=== PATIENT | female | born 1940 | race Caucasian/White ===

== ENCOUNTER 2017-08-22 13:29 | Emergency (ER) | payer MEDICARE, OTHER ==
[~2017-08-22] VITALS: Ht 157.5 cm; Wt 60.0 kg
[2017-08-22 14:29] LABS: AUTOMATED NEUTROPHIL # 5.2 TH/MM3 (1.8-7.7); BASOPHIL # 0.1 TH/MM3 (0-0.2); BASOPHIL % 0.9 % (0.0-2.0); EOSINOPHIL # 0.1 TH/MM3 (0-0.4); EOSINOPHIL % 1.3 % (0.0-4.0); HEMATOCRIT 39.8 % (35.0-46.0); HEMOGLOBIN 14.1 GM/DL (11.6-15.3); LYMPHOCYTE # 1.8 TH/MM3 (1.0-4.8); MEAN CELL VOLUME 88.5 FL (80.0-100.0); MEAN CORPUSCULAR HEMOGLOBIN 31.5 PG (27.0-34.0); MEAN CORPUSCULAR HGB CONC 35.5 % (32.0-36.0); MONO % 8.4 % (0.0-8.0); MONOCYTE # 0.7 TH/MM3 (0-0.9); NEUT % 66.4 % (16.0-70.0); PLATELET COUNT 278 TH/MM3 (150-450); RED BLOOD COUNT 4.49 MIL/MM3 (4.00-5.30); RED CELL DISTRIBUTION WIDTH 13.5 % (11.6-17.2); WHITE BLOOD COUNT 7.8 TH/MM3 (4.0-11.0)
--- NOTE | 2017-08-22 14:30 | RADRPT ---
EXAM DATE/TIME: 08/22/2017 14:16 [place] COMPARISON: No previous studies available for comparison. INDICATIONS : Bilateral lower region pain, calculi. ORAL CONTRAST: No oral contrast ingested. RADIATION DOSE: 9.50 CTDIvol (mGy) MEDICAL HISTORY : None SURGICAL HISTORY : None. ENCOUNTER: Initial ACUITY: 4 - 6 days PAIN SCALE: 2/10 LOCATION: Bilateral lower quadrant TECHNIQUE: Volumetric scanning of the abdomen and pelvis was performed. Using automated exposure control and ad justment of the mA and/or kV according to patient size, radiation dose was kept as low as reasonably achievable to obtain optimal diagnostic quality images. DICOM format image data is available electro nically for review and comparison. 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 Surgical clips gallbladder fossa. Right kidney: There is dilatation right kidney with the 5 mm stone in the middle third of the right ureter with mod erate hydronephrosis and There cases and the left kidney There is no ascites or adenopathy Multiple phleboliths in the pelvis Diverticuli sigmoid colon Review of bone windows reveals only degenerative changes CONCLUSION: 1. 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 Kong Lucero MD FACR on August 22, 2017 at 14:25 Board Certified Radiologist. This report was verified electronically.
[2017-08-22 14:41] LABS: ALBUMIN 3.6 GM/DL (3.4-5.0); AST (GOT) 23 U/L (15-37); BICARBONATE 27.7 MEQ/L (21.0-32.0); BLOOD UREA NITROGEN 13 MG/DL (7-18); CALCIUM 8.9 MG/DL (8.5-10.1); CHLORIDE 103 MEQ/L (98-107); CREATININE 1.16 MG/DL (0.50-1.00); GLOMERULAR FILTRATION RATE 45 ML/MIN (>89); GLUCOSE,RANDOM 93 MG/DL (74-106); SODIUM (NA) 138 MEQ/L (136-145)
[2017-08-22 14:46] LABS: ALKALINE PHOSPHATASE 95 U/L (45-117); ALT (GPT) 14 U/L (10-53); TOTAL BILIRUBIN ADULT 0.5 MG/DL (0.2-1.0); TOTAL PROTEIN 7.6 GM/DL (6.4-8.2)
[2017-08-22 15:54] VITALS: BP 140/81; PULSE 71; RESP 17; TEMP 97.7; O2SAT 97
[2017-08-22] MEDS ORDERED: SODIUM CHLOR 0.9% 1000 ML INJ 1,000 ML IV SCH (16:00)
--- NOTE | 2017-08-22 16:24 | PD ---
Physical Exam Narrative I, Dr. Mayorga, have reviewed the advance practice practitioner's documentation and am in agreement, met with the patient face to face, made the diagnosis, and the medical decision making was done by me. *My assessment and Findings: obstructive uropathy vs. Infected stone 76yo F was sent her by primary care physician to the ED for evaluation. Pt went to [facility] Friday and had CT scan that showed obstructive uropathy and followed up with primary care today. Pt said her pain is controlled and nausea is also controlled. Tolerating PO. Labs reviewed, no leukocytosis. H/H normal. CMP unremarkable. Creatinine 1.16. CTa/p- showed 5mm obstructing stone middle right ureter. UA showed WBC 1. Culture not indicated. Discussed with Dr. Byrnes from urology and pt can follow up as outpatient. She is well appearing and pain is control. Tolerating PO. Return precautions given. Data Data Last Documented VS Vital Signs Date Time Temp Pulse Resp B/P (MAP) Pulse Ox O2 Delivery O2 Flow Rate FiO2 08/22/17 15:54 97.7 71 17 140/81 (100) 97 Room Air Orders Orders Complete Blood Count With Diff (08/22/17 13:50) Comprehensive Metabolic Panel (08/22/17 13:50) Ct Abd/Pel W/O Iv Contrast (08/22/17 13:50) Urinalysis - C+S If Indicated (08/22/17 13:50) Sodium Chlor 0.9% 1000 Ml Inj (Ns 1000 M (08/22/17 16:00) Ed Discharge Order (08/22/17 17:33) Labs Laboratory Tests Test 08/22/17 14:05 08/22/17 16:44 White Blood Count 7.8 TH/MM3 Red Blood Count 4.49 MIL/MM3 Hemoglobin 14.1 GM/DL Hematocrit 39.8 % Mean Corpuscular Volume 88.5 FL Mean Corpuscular Hemoglobin 31.5 PG Mean Corpuscular Hemoglobin Concent 35.5 % Red Cell Distribution Width 13.5 % Platelet Count 278 TH/MM3 Mean Platelet Volume 9.0 FL Neutrophils (%) (Auto) 66.4 % Lymphocytes (%) (Auto) 23.0 % Monocytes (%) (Auto) 8.4 % Eosinophils (%) (Auto) 1.3 % Basophils (%) (Auto) 0.9 % Neutrophils # (Auto) 5.2 TH/MM3 Lymphocytes # (Auto) 1.8 TH/MM3 Monocytes # (Auto) 0.7 TH/MM3 Eosinophils # (Auto) 0.1 TH/MM3 Basophils # (Auto) 0.1 TH/MM3 CBC Comment DIFF FINAL Differential Comment Blood Urea Nitrogen 13 MG/DL Creatinine 1.16 MG/DL Random Glucose 93 MG/DL Total Protein 7.6 GM/DL Albumin 3.6 GM/DL Calcium Level 8.9 MG/DL Alkaline Phosphatase 95 U/L Aspartate Amino Transf (AST/SGOT) 23 U/L Alanine Aminotransferase (ALT/SGPT) 14 U/L Total Bilirubin 0.5 MG/DL Sodium Level 138 MEQ/L Potassium Level 3.8 MEQ/L Chloride Level 103 MEQ/L Carbon Dioxide Level 27.7 MEQ/L Anion Gap 7 MEQ/L Estimat Glomerular Filtration Rate 45 ML/MIN Urine Color LIGHT-YELLOW Urine Turbidity CLEAR Urine pH 5.5 Urine Specific [place] 1.003 Urine Protein NEG mg/dL Urine Glucose (UA) NEG mg/dL Urine Ketones TRACE mg/dL Urine Occult Blood SMALL Urine Nitrite NEG Urine Bilirubin NEG Urine Urobilinogen LESS THAN 2.0 MG/DL Urine Leukocyte Esterase SMALL Urine RBC 1 /hpf Urine WBC 1 /hpf Microscopic Urinalysis Comment CULT NOT INDICATED MDM Supervised Visit with CELY: Yes Diagnosis Primary Impression: Kidney stone on right side Scripts Tramadol (Tramadol) 50 Mg Tab 50 MG PO Q6H Y for PAIN, #10 TAB 0 Refills Prov: Sarah Mayorga DO 08/22/17 Sarah Mayorga DO Aug 22, 2017 16:24
[2017-08-22 17:10] LABS: BILIRUBIN, URINE NEG (NEG); BLOOD, URINE SMALL (NEG); GLUCOSE,URINE NEG (NEG); KETONE, URINE TRACE mg/dL (NEG); NITRITE,URINE NEG (NEG); PH, URINE 5.5 (5.0-8.5); URINE COLOR LIGHT-YELLOW (YELLW/STRAW); URINE LEUKOCYTE ESTERASE SMALL (NEG)
[2017-08-22] MEDS ORDERED: TRAM50TA PO (17:35)
--- NOTE | 2017-08-22 17:45 | PD ---
HPI Chief Complaint: Complaint Time Seen by Provider: 15:45 Travel History International Travel<30 days: No Contact w/Intl Traveler<30days: No Traveled to known affect area: No History of Present Illness HPI 76-year-old female that presents to the ED for evaluation of possible kidney stone. Per patient she was seen at [facility] on Friday and she developed severe pain in her right flank. Patient had labs and imaging which showed what appears to be a 5 mm stone with severe hydronephrosis. Per family and the patient she was released with a perception for tramadol and Zofran and she's been using it except that she is only taking the once. Per patient today she went to follow up with her doctor today and her doctor "freaked out" over the results of the CAT scan and sent the patient in to the ER. Patient herself voices that the pain in her flank has improved and is not been as bad as he was on Friday. Per patient the pain currently is 2 out of 10 if any. She has only taken the tramadol once and has been doing well with it. She denies any nausea or vomiting. She denies any urinary or bowel movement issues. She denies any surgeries or history of kidney stones. No fevers chills or sweats. Patient and family are unsure as to what to do as her doctor is very concerned about the findings on the CT scan. PFSH Past Medical History Medical History: Denies Significant Hx Diminished Hearing: No Tetanus Vaccination: Unknown Influenza Vaccination: No ?: Not Past Surgical History Cholecystectomy: Yes Hysterectomy: Yes Other Surgery: Yes (RIGHT WRIST ) Social History Alcohol Use: No Tobacco Use: No Substance Use: No Allergies-Medications (Allergen,Severity, Reaction): Coded Allergies: Penicillins (Verified Allergy, Unknown, 08/22/17) Uncoded Allergies: flouride (Allergy, Unknown, 08/22/17) Reported Meds & Prescriptions Reported Meds & Active Scripts Active Tramadol (Tramadol HCl) 50 Mg Tab 50 Mg PO Q6H PRN Review of Systems Except as stated in HPI: all other systems reviewed are Neg Physical Exam Narrative GENERAL: SKIN: Warm and dry. HEAD: Atraumatic. Normocephalic. EYES: Pupils equal and round. No scleral icterus. No injection or drainage. ENT: No nasal bleeding or discharge. Mucous membranes pink and moist. Tongue is midline. No uvula deviation. NECK: Trachea midline. No JVD. CARDIOVASCULAR: Regular rate and rhythm. No murmurs, S3, S4. RESPIRATORY: No accessory muscle use. Clear to auscultation. Breath sounds equal bilaterally. GASTROINTESTINAL: Abdomen soft, non-tender, nondistended. Hepatic and splenic margins not palpable. MUSCULOSKELETAL: Extremities without clubbing, cyanosis, or edema. No obvious deformities. No CVA tenderness. NEUROLOGICAL: Awake and alert. No obvious cranial nerve deficits. Motor grossly within normal limits. Five out of 5 muscle strength in the arms and legs. Normal speech. PSYCHIATRIC: Appropriate mood and affect; insight and judgment normal. Data Data Last Documented VS Vital Signs Date Time Temp Pulse Resp B/P (MAP) Pulse Ox O2 Delivery O2 Flow Rate FiO2 08/22/17 15:54 97.7 71 17 140/81 (100) 97 Room Air Orders Orders Complete Blood Count With Diff (08/22/17 13:50) Comprehensive Metabolic Panel (08/22/17 13:50) Ct Abd/Pel W/O Iv Contrast (08/22/17 13:50) Urinalysis - C+S If Indicated (08/22/17 13:50) Sodium Chlor 0.9% 1000 Ml Inj (Ns 1000 M (08/22/17 16:00) Ed Discharge Order (08/22/17 17:33) Labs Laboratory Tests Test 08/22/17 14:05 08/22/17 16:44 White Blood Count 7.8 TH/MM3 Red Blood Count 4.49 MIL/MM3 Hemoglobin 14.1 GM/DL Hematocrit 39.8 % Mean Corpuscular Volume 88.5 FL Mean Corpuscular Hemoglobin 31.5 PG Mean Corpuscular Hemoglobin Concent 35.5 % Red Cell Distribution Width 13.5 % Platelet Count 278 TH/MM3 Mean Platelet Volume 9.0 FL Neutrophils (%) (Auto) 66.4 % Lymphocytes (%) (Auto) 23.0 % Monocytes (%) (Auto) 8.4 % Eosinophils (%) (Auto) 1.3 % Basophils (%) (Auto) 0.9 % Neutrophils # (Auto) 5.2 TH/MM3 Lymphocytes # (Auto) 1.8 TH/MM3 Monocytes # (Auto) 0.7 TH/MM3 Eosinophils # (Auto) 0.1 TH/MM3 Basophils # (Auto) 0.1 TH/MM3 CBC Comment DIFF FINAL Differential Comment Blood Urea Nitrogen 13 MG/DL Creatinine 1.16 MG/DL Random Glucose 93 MG/DL Total Protein 7.6 GM/DL Albumin 3.6 GM/DL Calcium Level 8.9 MG/DL Alkaline Phosphatase 95 U/L Aspartate Amino Transf (AST/SGOT) 23 U/L Alanine Aminotransferase (ALT/SGPT) 14 U/L Total Bilirubin 0.5 MG/DL Sodium Level 138 MEQ/L Potassium Level 3.8 MEQ/L Chloride Level 103 MEQ/L Carbon Dioxide Level 27.7 MEQ/L Anion Gap 7 MEQ/L Estimat Glomerular Filtration Rate 45 ML/MIN Urine Color LIGHT-YELLOW Urine Turbidity CLEAR Urine pH 5.5 Urine Specific [place] 1.003 Urine Protein NEG mg/dL Urine Glucose (UA) NEG mg/dL Urine Ketones TRACE mg/dL Urine Occult Blood SMALL Urine Nitrite NEG Urine Bilirubin NEG Urine Urobilinogen LESS THAN 2.0 MG/DL Urine Leukocyte Esterase SMALL Urine RBC 1 /hpf Urine WBC 1 /hpf Microscopic Urinalysis Comment CULT NOT INDICATED MDM Medical Decision Making Medical Screen Exam Complete: Yes Emergency Medical Condition: Yes Medical Record Reviewed: Yes Interpretation(s) Last Impressions Abdomen/Pelvis CT 08/22/17 1350 Signed Impressions: Service Date/Time: Tuesday, August 22, 2017 14:16 - CONCLUSION: 1. 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 Kong Lucero MD FACR CBC & BMP Diagram 08/22/17 14:05 Total Protein 7.6, Albumin 3.6, Calcium Level 8.9, Alkaline Phosphatase 95, Aspartate Amino Transf (AST/SGOT) 23, Alanine Aminotransferase (ALT/SGPT) 14, Total Bilirubin 0.5 UA WNL Differential Diagnosis Kidney stone versus hydronephrosis versus kidney infection versus UTI Narrative Course 76-year-old female that presents to the ED for evaluation of possible kidney stone. Labs and imaging were ordered. Labs and imaging did show a 5 mm stone with moderate hydronephrosis. No signs of infection and kidney function appears to be normal for her. She was given IV fluids and she has actually not requesting any pain medication here feeling good per patient. I did offer pain medication but she declined. I discussed the case with my attending Dr. Mayorga who agrees that we should speak with urology. I spoke with Dr. Byrnes over the phone who is in agreement that as long as patient is feeling comfortable and her pain is under control she can follow-up outpatient and the kidney stone should pass on its own. He does not recommend Flomax at this time with continuation of pain medications as well as anti-inflammatories as well as good hydration. I had a long discussion with the family and patient and they're in agreement and happy with care. They understands reasons to come back. I did give information to the family and patient of Dr. Byrnes to follow up in the next week or 2 if the stone does not pass. All questions were answered to the best of my ability. Family happy with care. Reassured. Follow with PCP. See ED for worsening symptoms. Diagnosis Primary Impression: Kidney stone on right side Referrals: Huy Byrnes DO Patient Instructions: General Instructions Additional Instructions: Take medications as prescribed. Follow-up with PCP. See ED for any worsening symptoms. Do not drink or drive while taking pain medication. Apply ice or heat as needed for pain Drink plenty of fluids. Med/Other Pt SpecificInfo: Prescription(s) given Scripts Tramadol (Tramadol) 50 Mg Tab 50 MG PO Q6H Y for PAIN, #10 TAB 0 Refills Prov: Sarah Mayorga 08/22/17 Disposition: 01 DISCHARGE HOME Condition: Stable Ramon Li Aug 22, 2017 17:45
== END 2017-08-22 18:56 | disposition home or self-care (01) ==
LOC: NEPE 13:29
DX: N20.0 Calculus of kidney (principal); J84.10 Pulmonary fibrosis, unspecified; Z88.0 Allergy status to penicillin
CPT/HCPCS: 74176; 80053; 81001; 85025; 96360; 99285; J7030